=== PATIENT | female | born 1970 | race Caucasian/White ===

== ENCOUNTER → 2020-08-29 | Outpatient (CLI) | payer MEDICARE, OTHER | LOC: EMI 08-16 09:27 | DX: G35 Multiple sclerosis (principal) | CPT/HCPCS: 70553; 72156; A9577 ==

== ENCOUNTER → 2020-11-05 | Outpatient (CLI) | payer MEDICARE, OTHER ==
[2020-11-05 09:28] LABS: GLUCOSE,CSF 58 mg/dL (50-80); TOTAL PROTEIN,CSF 32 mg/dL (20-45)
[2020-11-05 09:52] LABS: WBC (AUTOMATED 1 10^3 (0-5); WBC (AUTOMATED 3 10^3 (0-5)
[2020-11-06 13:10] LABS: CSF IGG INDEX 0.5 (0.0-0.7); CSF/SERUM ALB. INDEX 4 (0-8); IMMUNOGLOBULIN G, QN, SERUM 343 mg/dL (586-1602)
[2020-11-07 17:08] LABS: MYELIN BASIC PROTEIN, CSF 3.8 ng/mL (0.0-3.7)
== END ==
LOC: RAD 07:15
PROVIDERS: Psychiatry & Neurology Neurology
DX: G35 Multiple sclerosis (principal)
CPT/HCPCS: 82040; 82784; 82945; 83873; 83916; 84157; 87015; 87070; 87116; 87205; 87210; 89051

== ENCOUNTER 2021-02-08 15:24 | Emergency (ER) | payer MEDICARE, OTHER | END 2021-02-08 16:00 | disposition home or self-care (01) | LOC: ER1 15:24 | DX: Z20.822 Contact with and (suspected) exposure to COVID-19 (principal); F17.200 Nicotine dependence, unspecified, uncomplicated; J44.9 Chronic obstructive pulmonary disease, unspecified | CPT/HCPCS: 99283; U0003 ==

== ENCOUNTER → 2021-02-11 | Outpatient (CLI) | payer MEDICARE, OTHER | LOC: CATH 09:29 | DX: R55 Syncope and collapse (principal) ==

== ENCOUNTER → 2021-04-18 | Outpatient (CLI) | payer MEDICARE, OTHER | LOC: HEART 5 13:00 | DX: R55 Syncope and collapse (principal); I08.1 Rheumatic disorders of both mitral and tricuspid valves | CPT/HCPCS: 93306 ==

== ENCOUNTER → 2021-08-30 | Outpatient (CLI) | payer MEDICARE, OTHER ==
[~2021-08-30] MED LIST: ALENDRONATE SOD70 MG PO; ALLERGY MEDICATION PO; AMITRIPTYLINE H75 MG PO; BUPROPION HCL100 MG PO; BUSPIRONE HCL30 MG PO; CELEXA20 MG PO; CELEXA40 MG PO; GABAPENTIN100 MG PO; HYDROCODON-ACE1 EAC2 PO; IMMUNE GLOBULIN IV; LISINOPRIL2.5 MG PO; LOW DOSE ASPIRI81 MG PO; METOPROLOL TART25 MG PO; MIDODRINE HCL2.5 MG PO; MULTI-VITAMIN1 EACH PO; OMEPRAZOLE20 M1 PO; TIZANIDINE HCL4 M1 PO; VITAMIN D21250 MCG PO
[2021-08-30 13:39] LABS: BUN/CREATININE RATIO 19 (0-10)
== END ==
LOC: LAB 11:58
PROVIDERS: Physician Assistant
DX: I20.9 Angina pectoris, unspecified (principal); I42.9 Cardiomyopathy, unspecified; I50.22 Chronic systolic (congestive) heart failure; R06.02 Shortness of breath; R55 Syncope and collapse; Z20.822 Contact with and (suspected) exposure to COVID-19
CPT/HCPCS: 36415; 80053; 80061; U0003

== ENCOUNTER 2021-09-04 11:25 | Outpatient (CLI) | payer MEDICARE, OTHER ==
[~2021-09-04] VITALS: Ht 160 cm; Wt 65.3 kg
[2021-09-04 12:15] LABS: HEMOGLOBIN 13.2 gm/dl (12.3-15.3); RED BLOOD COUNT 4.16 M/UL (4.00-5.10); WHITE BLOOD COUNT 7.5 K/UL (4.5-11.0)
[2021-09-04] MEDS ORDERED: AMITRIPTYLINE H75 MG PO (12:18)
[2021-09-04] MEDS ORDERED: ALENDRONATE SOD70 MG PO (12:18)
[2021-09-04] MEDS ORDERED: LOW DOSE ASPIRI81 MG PO (12:19)
[2021-09-04] MEDS ORDERED: BUPROPION HCL100 MG PO (12:19)
[2021-09-04] MEDS ORDERED: CELEXA40 MG PO (12:20)
[2021-09-04] MEDS ORDERED: CELEXA20 MG PO (12:20)
[2021-09-04] MEDS ORDERED: GABAPENTIN100 MG PO (12:21)
[2021-09-04] MEDS ORDERED: IMMUNE GLOBULIN IV (12:21)
[2021-09-04] MEDS ORDERED: HYDROCODON-ACE1 EAC2 PO (12:22)
[2021-09-04] MEDS ORDERED: LISINOPRIL2.5 MG PO (12:23)
[2021-09-04] MEDS ORDERED: MIDODRINE HCL2.5 MG PO (12:24)
[2021-09-04] MEDS ORDERED: OMEPRAZOLE20 M1 PO (12:24)
[2021-09-04] MEDS ORDERED: MULTI-VITAMIN1 EACH PO (12:24)
[2021-09-04] MEDS ORDERED: TIZANIDINE HCL4 M1 PO (12:25)
[2021-09-04] MEDS ORDERED: VITAMIN D21250 MCG PO (12:25)
--- NOTE | 2021-09-05 06:20 | NUR ---
PT EDUCATED THROUGHOUT SHIFT TO NOT BEND ARM AND CALL OUT FOR ASSISTANCE WHEN NEEDING TO GET UP TO USE THE RESTROOM OR FOR ANY REASON DUE TO THE BLEEDING OF CATH SITE. PATIENT AWARE AND STATED SHE UNDERSTOOD
[2021-09-05] MEDS ORDERED: ATIVAN0.5 MG PO (10:42)
[2021-09-05] MEDS ORDERED: IPRAT-ALBUT 0.5-3 ML INH (10:45)
[2021-09-05] MEDS ORDERED: PROVENTIL HFA6.7 GM INH (10:47)
[2021-09-05] MEDS ORDERED: MAGNESIUM OXID250 MG PO (10:53)
[2021-09-05] MEDS ORDERED: BUSPIRONE HCL30 MG PO (12:20)
[2021-09-05] MEDS ORDERED: LEVOCETIRIZINE PO (12:22)
[2021-09-05] MEDS ORDERED: METOPROLOL TART25 MG PO (12:23)
[2021-09-09] MEDS ORDERED: PROBIOTIC PO (14:29)
== END 2021-09-05 11:22 | disposition home or self-care (01) ==
LOC: PROG CARE 11:25 → CATH 11:25 → PROG CARE 19:53 → CATH 09-05 11:22
PROVIDERS: Internal Medicine Cardiovascular Disease
DX: I25.110 Atherosclerotic heart disease of native coronary artery with unstable angina pectoris (principal); I50.22 Chronic systolic (congestive) heart failure; I42.0 Dilated cardiomyopathy; E03.9 Hypothyroidism, unspecified; I95.1 Orthostatic hypotension; Z79.82 Long term (current) use of aspirin; Z79.899 Other long term (current) drug therapy
CPT/HCPCS: 36415; 85025; 99152; 99153; C1769; C1894; J1644; J2250; J2930; J3010; Q9967

== ENCOUNTER → 2021-09-10 | Day surgery (SDC) | payer MEDICARE, OTHER ==
[~2021-09-10] MED LIST changes: -ALLERGY MEDICATION PO; +ATIVAN0.5 MG PO; +IPRAT-ALBUT 0.5-3 ML INH; +LEVOCETIRIZINE PO; +MAGNESIUM OXID250 MG PO; +PROBIOTIC PO; +PROVENTIL HFA6.7 GM INH
== END | disposition home or self-care (01) ==
LOC: OR 05:38
DX: G35 Multiple sclerosis (principal); I25.5 Ischemic cardiomyopathy; I25.118 Atherosclerotic heart disease of native coronary artery with other forms of angina pectoris; I50.22 Chronic systolic (congestive) heart failure; J44.9 Chronic obstructive pulmonary disease, unspecified; M81.0 Age-related osteoporosis without current pathological fracture; E03.9 Hypothyroidism, unspecified; F17.210 Nicotine dependence, cigarettes, uncomplicated; F41.9 Anxiety disorder, unspecified; F32.A Depression, unspecified; Z88.8 Allergy status to other drugs, medicaments and biological substances; Z91.013 Allergy to seafood; Z79.82 Long term (current) use of aspirin; Z79.899 Other long term (current) drug therapy
CPT/HCPCS: 71045; 77001; C1769; C1788; J0690; J1100; J1642; J2001; J2250; J2405; J2704; J3010; J7040

== ENCOUNTER → 2021-10-29 | Outpatient (CLI) | payer MEDICARE, OTHER | LOC: HEART 5 10:00 | DX: I42.0 Dilated cardiomyopathy (principal); I50.22 Chronic systolic (congestive) heart failure; R06.02 Shortness of breath; I08.1 Rheumatic disorders of both mitral and tricuspid valves | CPT/HCPCS: 93306 ==

== ENCOUNTER → 2021-11-29 | Outpatient (CLI) | payer MEDICARE, OTHER ==
[~2021-11-29] MED LIST changes: +CLEOCIN HCL300 MG PO; +LEVOCETIRIZINE D5 MG PO; -LEVOCETIRIZINE PO; +LEVOFLOXACIN500 MG PO
[2021-11-29 22:02] LABS: HEMOGLOBIN 13.2 gm/dl (12.3-15.3); RED BLOOD COUNT 4.1 M/UL (4.00-5.10); WHITE BLOOD COUNT 8.5 K/UL (4.5-11.0)
[2021-11-29 22:06] LABS: BUN/CREATININE RATIO 14 (0-10)
== END ==
LOC: LAB 21:15
PROVIDERS: Internal Medicine Cardiovascular Disease
DX: I50.22 Chronic systolic (congestive) heart failure (principal); I42.0 Dilated cardiomyopathy; R06.02 Shortness of breath
CPT/HCPCS: 80048; 85025